=== PATIENT | male | born 1960 | race Caucasian/White ===

== ENCOUNTER → 2019-06-10 | Outpatient (CLI) | payer BC ==
[~2019-06-10] MED LIST: BENICAR HCT 401 EACH PO; MULTIVITAMINS1 EAC5 PO
== END | disposition home or self-care (01) ==
LOC: CARD 02:24
DX: R06.09 Other forms of dyspnea (principal); R94.31 Abnormal electrocardiogram [ECG] [EKG]; R07.89 Other chest pain; R06.02 Shortness of breath